=== PATIENT | male | born 1970 | race Caucasian/White ===

== ENCOUNTER 2020-05-04 10:48 | Outpatient (CLI) | payer OTHER, SELFPAY ==
--- NOTE | 2020-05-04 10:56 | MR_ITS ---
WS: [id number] MRI LEFT KNEE HISTORY: RECURRENT LEFT MEDIAL KNEE PAIN COMPARISON: None available. Anterior cruciate ligament: There is a very small amount of fluid adjacent to the proximal ACL along the intercondylar notch. No full-thickness tear. Posterior cruciate ligament: Intact. Medial collateral ligament: Small amount of fluid on both sides of the MCL. There is no tear. Posterior lateral corner structures: Intact. Medial menisci: Mild irregularity and fissuring along this superior surface of the posterior horn. No full-thickness tear. Lateral meniscus: Intact. Normal signal, size and shape. Extensor mechanism: Distal quadriceps tendon and patellar tendons are intact. Fluid and soft tissue: Small suprapatellar joint effusion. Small amount of edema along the medial kne e. No Corea's cyst. Osseous and articular structures: Patellofemoral compartment: Thinning of the cartilage over the medial patellar facet. Chondromalacia extends over a width of 7 mm. Very small amount of edema in the marrow adjacent to the cartilage lesi on. Medial compartment: Mild narrowing of the medial compartment. There is significant fraying and abnorm al signal along the cartilage of the medial condyle towards the intercondylar notch. This is also the site of fraying of the posterior meniscal horn. Additional small defect along the tibial plateau tow ards the tibial spine. Lateral compartment: Very mild fraying and fissuring of the cartilage. No full-thickness defect or ma rrow edema. MR/MR knee LT wo con* [id number] IMPRESSION: 1. Significant chondromalacia involving the medial femoral condyle towards the intercondylar notch. There is fissuring and increase fluid within the cartilag e and associated abnormal surface fraying of the posterior meniscal horn. 2. Mild chondromalacia medial patellar facet. 3. Additional mild narrowing of the medial compartment with a smaller cartilag e defect along the medial tibial plateau. 4. Mild ACL sprain. 5. Mild MCL sprain.
== END 2020-05-04 10:49 | disposition home or self-care (01) ==
LOC: RADSHAW 10:55
PROVIDERS: PCP Family Medicine; Visit Provider Family Medicine
DX: M22.42 Chondromalacia patellae, left knee (principal); S83.512A Sprain of anterior cruciate ligament of left knee, initial encounter; S83.412A Sprain of medial collateral ligament of left knee, initial encounter; X58.XXXA Exposure to other specified factors, initial encounter
CPT/HCPCS: 73721

== ENCOUNTER → 2020-08-17 15:53 | Outpatient (BNVA) | payer OTHER, SELFPAY | PROVIDERS: PCP Family Medicine; Visit Provider Specialist | DX: M25.562 Pain in left knee (principal); M25.561 Pain in right knee; M25.462 Effusion, left knee | CPT/HCPCS: 73560; 73565 ==